=== PATIENT | male | born 1975 | race Caucasian/White ===

== ENCOUNTER 2022-04-30 08:44 | Emergency (ER) | payer OTHER, SELFPAY ==
--- NOTE | 2022-04-30 08:46 | ED.URI ---
HPI - URI/Sore Throat General Chief Complaint: Upper Respiratory Infection Stated Complaint: cold flu Time Seen by Provider: 04/30/22 08:46 Source: patient and RN notes reviewed History of Present Illness HPI Narrative: patient is a 46-year-old male who presents to urgent care with complaints of cough, chest congestion headache. Patient states symptoms started approximately 3 weeks ago, he got better and then worse again with a cough. Denies any fevers, nausea or vomiting. Patient has been using Mucinex up until approximately 1 week ago and started NyQuil and DayQuil. No other acute complaints. No acute distress noted. Patient aware of the plan of care. Some parts of this dictation were generated by voice recognition software and may contain typographical and/or grammatical inaccuracies. Related Data Home Medications Medication Instructions Recorded Confirmed bupropion HCl 100 mg tablet,12 hr 100 mg PO DAILY 04/30/22 04/30/22 sustained-release Allergies Allergy/AdvReac Type Severity Reaction Status Date / Time No Known Drug Allergies Allergy Unknown Verified 04/30/22 09:03 Review of Systems Review of Systems: CONSTITUTIONAL: Denies fever, chills, or sweats. EYES: Denies visual changes, redness, or discharge. ENT: reports rhinorrhea, congestion, postnasal drainage CARDIOVASCULAR: Denies chest pain, palpitations, or edema. RESPIRATORY: reports of harsh cough GASTROINTESTINAL: Denies abdominal pain, nausea, vomiting, or diarrhea. GENITOURINARY: Denies dysuria or hematuria. SKIN: Denies rash or itching. MUSCULOSKELETAL: Denies back pain, joint pain, or myalgia. NEUROLOGIC: Reports of headache All other systems reviewed are negative, except as documented in HPI. PMFSH Comments At the time of my signature, I reviewed and agree with the nursing past medical, surgical, social, and family history. There is no relevant family history pertinent to the patient complaint. Exam Narrative: GENERAL: This is a well-nourished, well-developed patient, in no apparent distress. HEAD: normocephalic, atraumatic. EYES: PERRL. Sclera clear/white. Vision is grossly intact. EARS: External ears normal, auditory canals clear and without drainage, TMs normal without perforation. Hearing grossly intact. NOSE: External nose normal with no obvious nasal discharge, nares without redness, clear rhinorrhea. THROAT: Mucous membranes moist, posterior pharynx clear. moderate postnasal drainage NECK: Neck supple, non-tender without lymphadenopathy CARDIOVASCULAR: Regular rate and rhythm without murmurs, gallops, or rubs. RESPIRATORY: harsh persistent cough noted on exam. Scant expiratory wheezes bibasilar SKIN: warm, intact with no suspicious lesions or rash, good texture and turgor. NEURO: awake, alert, and oriented to person, place and time. There were no obvious focal neurologic abnormalities. EXTREMITIES: No clubbing, cyanosis, or edema. Course Course Level of Care: Express Care Visit Vital Signs Vital signs: Vital Signs Temperature 98.1 F 04/30/22 08:52 Pulse Rate 101 H 04/30/22 08:52 Respiratory Rate 16 04/30/22 08:52 Blood Pressure 141/80 H 04/30/22 08:52 Pulse Oximetry 99 04/30/22 08:52 Oxygen Delivery Room Air 04/30/22 08:52 Temperature 98.1 F 04/30/22 08:52 Pulse Rate 101 H 04/30/22 08:52 Respiratory Rate 16 04/30/22 08:52 Blood Pressure 141/80 H 04/30/22 08:52 Pulse Oximetry 99 04/30/22 08:52 Oxygen Delivery Room Air 04/30/22 08:52 reviewed- Patient is informed that they may have pre-hypertension or hypertension based on a blood pressure reading in the department. I recommend the patient call the primary care provider listed on their discharge instructions or a physician of their choice this week to arrange follow-up for further evaluation of possible pre-hypertension or hypertension. MDM - URI/Sore Throat MDM Narrative Medical decision making narrative: advised patient to
[2022-04-30 08:52] VITALS: BP 141/80; PULSE 101; RESP 16; TEMP 36.7; O2SAT 99
== END 2022-04-30 09:15 | disposition home or self-care (01) ==
PROVIDERS: Emergency Provider Nurse Practitioner Family
DX: J40 Bronchitis, not specified as acute or chronic (principal); F41.9 Anxiety disorder, unspecified
CPT/HCPCS: 99213; G0463